=== PATIENT | male | born 1995 ===

== ENCOUNTER 2021-02-26 04:03 | Emergency (ER) | payer OTHER, MEDICAID, SELFPAY ==
[2021-02-26] VITALS (7 sets, daily range): BP systolic 114–140; BP diastolic 57–76; PULSE 69–83; RESP 20; TEMP 37.1; O2SAT 97–100
[2021-02-26] MEDS: cloNIDine TTS 0.1 MG PATCH TOP (04:44)
[2021-02-26] MEDS: SODIUM CHLORIDE 0.9% 1,000 ML 1000 ML IV (04:45)
[2021-02-26 05:18] LABS: Add Manual Diff / Slide Review NO; Basophils Absolute Auto 0 /uL (0-100); Basophils Percent Auto 0.3 % (0-2); Eosinophils Absolute Auto 100 /uL (0-450); Eosinophils Percent Auto 0.8 % (2-4); Hematocrit 39.3 % (41-53); Hemoglobin 12.7 g/dL (13.5-17.5); Lymphocytes Absolute Auto 1600 /uL (1100-4500); Lymphocytes Percent Auto 12.1 % (25-40); Mean Corpuscular HGB Conc 32.3 % (30-36); Mean Corpuscular Hemoglobin 26.8 PG (26-34); Mean Corpuscular Volume 82.8 fL (80-100); Monocytes Absolute Auto 400 /uL (0-900); Monocytes Percent Auto 2.9 % (3-14); Neutrophils Absolute Auto 10900 /uL (1500-7000); Neutrophils Percent Auto 83.9 % (50-75); Platelet Count 253 X10^3/uL (150-400); Red Blood Cell Count 4.75 X10^6/uL (4.5-5.9); Red Cell Distribution Width 13.2 % (11.6-14.8); White Blood Cell Count 12.9 X10^3/uL (4.5-11.0)
[2021-02-26 05:24] LABS: Alanine Aminotransferase 51 IU/L (<50); Albumin 4.3 g/dL (3.5-5.0); Albumin Globulin Ratio 1.2 (1.0-2.8); Alkaline Phosphatase 78 U/L (38-126); Aspartate Aminotransferase 41 IU/L (17-59); BUN Creatinine Ratio 19.4 (6-22); Bilirubin Total 0.5 mg/dL (0.2-1.3); Blood Urea Nitrogen 14 mg/dL (9-20); Calcium 9.8 mg/dL (8.4-10.2); Carbon Dioxide 28 mmol/L (22-32); Chloride 103 mmol/L (98-107); Estimated Glomerular Filt Rate > 60.0 mL/min (>60); Globulin 3.5 g/dL (1.7-4.1); Glucose 128 mg/dL (70-100); HEMOLYSIS 22 (0-50); Magnesium 1.7 mg/dL (1.6-2.3); Potassium 3.8 mmol/L (3.4-5.1); Sodium 137 mmol/L (137-145); Total Protein 7.8 g/dL (6.3-8.2)
[2021-02-26] MEDS: HALOPERIDOL 5 MG/ML VIAL 2 MG IV (06:07)
--- NOTE | 2021-02-26 06:10 | ED_ITS ---
HPI - Nausea/Vomiting/Diarrhea <DO Laine Varma Last Filed: 02/27/21 01:08> General Chief complaint: Toxicology Problem Stated complaint: Detox-Vomiting Time Seen by Provider: 02/26/21 04:10 Source: EMS Mode of arrival: EMS History of Present Illness HPI Narrative: 25-year-old male nonsmoker with extensive opioid abuse history presents by EMS with constellation of symptoms related to opioid withdrawal. He had checked into [facility] [place] yesterday for help with opioid withdrawal and despite their best efforts had eventually exceeded their capability. Is vomiting, agitation and inability to tolerate orals led to EMS being activated and sent here for evaluation. Patient uses a significant amount of fentanyl and heroin daily by IV and smoking as well as occasional meth. Patient is unable to prov osmany much of a history but per report he had last used a few days ago. His treatment plan at [facility] included hydroxyzine, methocarbamol, trazodone, diphenhydramine, clonidine, promethazine, Zofran but eventually he was unable to keep these down due to persistent vomiting. There were attempts to give Suboxone but he vomited them up. Related Data Allergies Allergy/AdvReac Type Severity Reaction Status Date / Time No Known Drug Allergies Allergy Verified 02/26/21 06:07 Review of Systems <DO Laine Varma Last Filed: 02/27/21 01:08> Review of Systems Narrative: GENERAL: See HPI HEENT: Denies sinus pain, ear pain, sore throat, difficulty swallowing, dizziness. RESPIRATORY: Denies dyspnea, cough, wheezing, hemoptysis, sputum. CARDIOVASCULAR: Denies chest pain, palpitations, orthopnea, edema, GASTROINTESTINAL: See HPI : Denies dysuria, frequency, incontinence, hematuria, urinary retention. MUSCULOSKELETAL: denies weakness, joint pain, or bony pain SKIN: Denies rash, skin lesions, or other NEUROLOGIC: See HPI PSYCHIATRIC: No concerning psychosocial issues. 12 point review of systems is negative except for those stated above Exam <DO Laine Varma Last Filed: 02/27/21 01:08> Narrative Exam Narrative: GENERAL: [25] year old patient appears stated age. Obviously uncomfortable, responsive with accurate answers, slightly somnolent. HEAD: Atraumatic. Normocephalic. EYES: Pupils equal round and reactive. Extraocular motions intact. No scleral icterus. No injection or drainage. ENT: Nose without bleeding, purulent drainage. Throat without erythema, tonsillar hypertrophy or exudate. Airway patent. NECK: Trachea midline. Non tender CARDIOVASCULAR: Regular rate and rhythm without murmurs, gallops, or rubs. RESPIRATORY: Clear to auscultation. Breath sounds equal bilaterally. No wheezes, rales, or rhonchi. GASTROINTESTINAL: Abdomen soft, non-tender, nondistended. EXTREMITIES: No edema or joint tenderness. BACK: Nontender without deformity or crepitance. No flank tenderness. SKIN: No rash or erythema of visible areas Initial Vital Signs Initial Vital Signs: Vital Signs Pulse Rate 77 02/26/21 04:05 Pulse Oximetry 100 02/26/21 04:05 <Beatriz Tejada MD - Last Filed: 02/26/21 16:22> Initial Vital Signs Initial Vital Signs: Vital Signs Pulse Rate 77 02/26/21 04:05 Pulse Oximetry 100 02/26/21 04:05 Course <Tra Toure DO - Last Filed: 02/27/21 01:08> Orders Ordered: Discontinued Medications Buprenorphine/Naloxone (Buprenorphine/Naloxone 8mg/2mg 1 Tab) 1 tab SL NOW ONE Stop: 02/26/21 07:59 Last Admin: 02/26/21 08:51 Dose: 1 tab Documented by: DAWIT Buprenorphine/Naloxone (Buprenorphine/Naloxone 8mg/2mg 1 Tab) 1 tab SL DAILY [facility] Last Admin: 02/26/21 10:02 Dose: 1 tab Documented by: DAWIT Clonidine HCl (Clonidine Tts 0.1 Mg Patch) 0.1 mg TOP NOW ONE Stop: 02/26/21 04:01 Last Admin: 02/26/21 04:44 Dose: 0.1 mg Documented by: MOY Haloperidol (Haloperidol 5 Mg/Ml Vial) 2 mg IV NOW ONE Stop: 02/26/21 05:59 Last Admin: 02/26/21 06:07 Dose: 2 mg Documented by: MOY Sodium Chloride (Normal Saline 0.9%) 1,000 mls @ 1,000 mls/hr IV BOLUS ONE Stop: 02/26/21 04:59 Last Infusion: 02/26/21 05:51 Dose: 0 mls/hr Documented by: Admin: 02/26/21 04:45 Dose: 1,000 mls/hr Documented by: MOY Ketorolac Tromethamine (Ketorolac 30 Mg/Ml Vial) 30 mg IM NOW ONE Stop: 02/26/21 09:50 Last Admin: 02/26/21 09:55 Dose: Not Given Documented by: DAWIT Ketorolac Tromethamine (Ketorolac 30 Mg/Ml Vial) 15 mg IV NOW ONE Stop: 02/26/21 09:55 Last Admin: 02/26/21 10:02 Dose: 15 mg Documented by: DAWIT Reevaluation(s) Reevaluation #1: Patient seems to be improved after above-stated therapies. Resting comfortably, labs reassuring. Sign out to Dr. Tejada for final disposition Vital Signs Vital signs: Vital Signs - 8 hr 02/26/21 10:02 02/26/21 11:35 02/26/21 11:36 Pulse Rate 83 73 73 Blood Pressure 119/62 127/61 Pulse Oximetry 99 99 98 <Beatriz Tejada MD - Last Filed: 02/26/21 16:22> Orders Ordered: Discontinued Medications Buprenorphine/Naloxone (Buprenorphine/Naloxone 8mg/2mg 1 Tab) 1 tab SL NOW ONE Stop: 02/26/21 07:59 Last Admin: 02/26/21 08:51 Dose: 1 tab Documented by: DAWIT Buprenorphine/Naloxone (Buprenorphine/Naloxone 8mg/2mg 1 Tab) 1 tab SL DAILY [facility] Last Admin: 02/26/21 10:02 Dose: 1 tab Documented by: DAWIT Clonidine HCl (Clonidine Tts 0.1 Mg Patch) 0.1 mg TOP NOW ONE Stop: 02/26/21 04:01 Last Admin: 02/26/21 04:44 Dose: 0.1 mg Documented by: MOY Haloperidol (Haloperidol 5 Mg/Ml Vial) 2 mg IV NOW ONE Stop: 02/26/21 05:59 Last Admin: 02/26/21 06:07 Dose: 2 mg Documented by: MOY Sodium Chloride (Normal Saline 0.9%) 1,000 mls @ 1,000 mls/hr IV BOLUS ONE Stop: 02/26/21 04:59 Last Infusion: 02/26/21 05:51 Dose: 0 mls/hr Documented by: Admin: 02/26/21 04:45 Dose: 1,000 mls/hr Documented by: MOY Ketorolac Tromethamine (Ketorolac 30 Mg/Ml Vial) 30 mg IM NOW ONE Stop: 02/26/21 09:50 Last Admin: 02/26/21 09:55 Dose: Not Given Documented by: DAWIT Ketorolac Tromethamine (Ketorolac 30 Mg/Ml Vial) 15 mg IV NOW ONE Stop: 02/26/21 09:55 Last Admin: 02/26/21 10:02 Dose: 15 mg Documented by: DAWIT Vital Signs Vital signs: Vital Signs - 8 hr 02/26/21 10:02 02/26/21 11:35 02/26/21 11:36 Pulse Rate 83 73 73 Blood Pressure 119/62 127/61 Pulse Oximetry 99 99 98 MDM - Nausea/Vomiting/Diarrhea <Tra Toure DO - Last Filed: 02/27/21 01:08> Lab Data Result diagrams: 02/26/21 05:05 02/26/21 05:05 Labs: Lab Results 02/26/21 02/26/21 Range/Units 05:05 05:05 WBC 12.9 H (4.5-11.0) X10^3/uL RBC 4.75 (4.5-5.9) X10^6/uL Hgb 12.7 L (13.5-17.5) g/dL Hct 39.3 L (41-53) % MCV 82.8 (80-100) fL MCH 26.8 (26-34) PG MCHC 32.3 (30-36) % RDW 13.2 (11.6-14.8) % Plt Count 253 (150-400) X10^3/uL Neut % (Auto) 83.9 H (50-75) % Lymph % (Auto) 12.1 L (25-40) % [place] % (Auto) 2.9 L (3-14) % Eos % (Auto) 0.8 L (2-4) % Baso % (Auto) 0.3 (0-2) % Neut # (Auto) 69544 H (4115-3617) /uL Lymph # (Auto) 1600 (7274-4626) /uL [place] # (Auto) 400 (0-900) /uL Eos # (Auto) 100 (0-450) /uL Baso # (Auto) 0 (0-100) /uL Sodium 137 (137-145) mmol/L Potassium 3.8 (3.4-5.1) mmol/L Chloride 103 (98-107) mmol/L Carbon Dioxide 28 (22-32) mmol/L BUN 14 (9-20) mg/dL Creatinine 0.72 (0.66-1.25) mg/dL Estimated GFR > 60.0 (>60) mL/min BUN/Creatinine Ratio 19.4 (6-22) Glucose 128 H (70-100) mg/dL Calcium 9.8 (8.4-10.2) mg/dL Magnesium 1.7 (1.6-2.3) mg/dL Total Bilirubin 0.5 (0.2-1.3) mg/dL AST 41 (17-59) IU/L ALT 51 H (<50) IU/L Alkaline Phosphatase 78 (38-126) U/L Total Protein 7.8 (6.3-8.2) g/dL Albumin 4.3 (3.5-5.0) g/dL Globulin 3.5 (1.7-4.1) g/dL Albumin/Globulin Ratio 1.2 (1.0-2.8) <Beatriz Tejada MD - Last Filed: 02/26/21 16:22> Lab Data Labs: Lab Results 02/26/21 02/26/21 Range/Units 05:05 05:05 WBC 12.9 H (4.5-11.0) X10^3/uL RBC 4.75 (4.5-5.9) X10^6/uL Hgb 12.7 L (13.5-17.5) g/dL Hct 39.3 L (41-53) % MCV 82.8 (80-100) fL MCH 26.8 (26-34) PG MCHC 32.3 (30-36) % RDW 13.2 (11.6-14.8) % Plt Count 253 (150-400) X10^3/uL Neut % (Auto) 83.9 H (50-75) % Lymph % (Auto) 12.1 L (25-40) % [place] % (Auto) 2.9 L (3-14) % Eos % (Auto) 0.8 L (2-4) % Baso % (Auto) 0.3 (0-2) % Neut # (Auto) 90767 H (2469-8577) /uL Lymph # (Auto) 1600 (3995-3475) /uL [place] # (Auto) 400 (0-900) /uL Eos # (Auto) 100 (0-450) /uL Baso # (Auto) 0 (0-100) /uL Sodium 137 (137-145) mmol/L Potassium 3.8 (3.4-5.1) mmol/L Chloride 103 (98-107) mmol/L Carbon Dioxide 28 (22-32) mmol/L BUN 14 (9-20) mg/dL Creatinine 0.72 (0.66-1.25) mg/dL Estimated GFR > 60.0 (>60) mL/min BUN/Creatinine Ratio 19.4 (6-22) Glucose 128 H (70-100) mg/dL Calcium 9.8 (8.4-10.2) mg/dL Magnesium 1.7 (1.6-2.3) mg/dL Total Bilirubin 0.5 (0.2-1.3) mg/dL AST 41 (17-59) IU/L ALT 51 H (<50) IU/L Alkaline Phosphatase 78 (38-126) U/L Total Protein 7.8 (6.3-8.2) g/dL Albumin 4.3 (3.5-5.0) g/dL Globulin 3.5 (1.7-4.1) g/dL Albumin/Globulin Ratio 1.2 (1.0-2.8) MDM Narrative Medical decision making narrative: 25-year-old gentleman with opioid use disorder who has been using fentanyl. Was at detox and having significant withdrawal symptoms and medications were not particularly effective. Initial medication at detox was February 25 at 4:15 a.m.. His 1st dose of 2 mg of Suboxone was February 26 at noon which was not effective. I suspect that his last use of fentanyl was immediately prior to going into detox and he was not in significant withdrawal prior to the 1st dose of Suboxone. In the emergency department today he has gotten a L of fluid, 2 mg of IV Haldol and has a 0.1 mg clonidine patch on. He is no longer vomiting, arousable but sleeping soundly despite complaining that he is unable to sleep. Once he wakes up a bit more will try an additional 2 mg of sublingual Suboxone and re-evaluate. He will be able to go back to his detox facility once he is better stabilized. 9:50am despite seeming to sleep quite well, continues to complain that he is not able to sleep. He is complaining of severe chronic back pain. Is dramatically improved with his withdrawal symptoms after 8 mg of Suboxone. He describes taking up to 30 fentanyl pills blue perc 30s daily. This is a a large dose and he will benefit from higher doses of Suboxone. At this point he clearly is not having any precipitated withdrawal, will give him a shot of Toradol for the back pain in add an additional 8 mg of Suboxone sublingually. Has already contacted his rehab facility and they will come pick him. They will help with additional detoxification and figure out his final Suboxone dose. He is stable for discharge at this time Regarding his chronic back pain, he states that this is similar to the pain that he always has. He is not febrile, he has not been injecting he has only been smoking his opioids this point. He does not have point tenderness along his lower spine and I do not suspect epidural abscess or diskitis at this time Discharge Plan Departure Patient Disposition: Home Clinical Impression: Opioid use disorder, Chronic back pain Instructions: Opioid Use Disorder, DI for Back Pain With Sciatica Activity Restrictions/Additional Instructions: In the emergency room you are given a L of fluid, IV Haldol, a clonidine patch was placed. After nausea was controlled you given a total of 16 mg of Suboxone in graduated doses to avoid precipitated withdrawal symptoms. For chronic back pain, you have been given Toradol 3 or IV. Without a fever or central point tenderness on your exam, I am not concerned that you have an epidural abscess or infection in your spine. Chronic back pain is incredibly frustrating and often requires multi a factorial approach. Unfortunately chronic narcotics do not help with chronic back pain. I wish you the best in returning to the [facility] stabilization [place]
[2021-02-26] MEDS: BUPRENORPHINE/NALOXONE 8MG/2MG 1 TAB SL ×2 (08:51→10:02)
--- NOTE | 2021-02-26 09:04 | PC.NURSE ---
2nd quarter given at [address] Tejada, to re-assess at 0915
--- NOTE | 2021-02-26 09:17 | PC.NURSE ---
0917- final 0.5 tab given SL. Pt tolerating medication.
[2021-02-26] MEDS: KETOROLAC 30 MG/ML VIAL 15 MG IV (10:02)
== END 2021-02-26 12:05 | disposition home or self-care (01) ==
PROVIDERS: Emergency Medicine; Emergency Provider Emergency Medicine
DX: F11.93 Opioid use, unspecified with withdrawal (principal); G89.29 Other chronic pain; M54.9 Dorsalgia, unspecified
CPT/HCPCS: 36415; 80053; 83735; 85025; 96361; 96374; 96375; 99284; J1630; J1885